=== PATIENT | male | born 1960 | race Caucasian/White ===

== ENCOUNTER 2016-08-18 10:59 | Observation (INO) | payer OTHER ==
[2016-08-18] MEDS ORDERED: ASPIRIN EC 325 MG TAB PO ONE (11:12)
[2016-08-18] MEDS ORDERED: FAMOTIDINE 20 MG TAB PO ONE (11:12)
[2016-08-18] MEDS ORDERED: NS 1,000 ML IV ONE (11:12)
[2016-08-18] MEDS ORDERED: DIAZEPAM 5 MG TAB PO ONE (11:12)
[2016-08-18] MEDS ORDERED: diphenhydrAMINE 25 MG CAP PO ONE ×2 (11:12→11:34)
[2016-08-18] MEDS ORDERED: FAMOTIDINE 20 MG TAB ONE (11:34)
[2016-08-18] MEDS ORDERED: DIAZEPAM 5 MG TAB ONE (11:34)
[2016-08-18 11:37] LABS: % IMMATURE GRANULYOCYTES 0.2 % (0.0-1.1); ABSOLUTE IMMATURE GRANULOCYTES 0.02 10^3/uL (0.00-0.10); ADD DIFF? NO; ADD MORPH? NO; ADD SCAN? NO; ATYPICAL LYMPHOCYTE FLAG 0 (0-99); FRAGMENT RBC FLAG 0 (0-99); HEMOGLOBIN 16.9 g/dL (13.7-17.5); LEFT SHIFT FLG 0 (0-99); LIPEMIA HEMOLYSIS FLAG 90 (0-99); MEAN CELL HEMOGLOBIN 31.4 pg (27.9-34.1); MEAN CELL HEMOGLOBIN CONCENTR. 35.2 g/dL (32.4-36.7); MEAN CELL VOLUME 89.1 fL (81.5-99.8); MEAN PLATELET VOLUME 8.5 fL (8.7-11.7); PLATELET CLUMPS FLAG 0 (0-99); PLATELET COUNT 219 10^3/uL (150-400); RED BLOOD CELL COUNT 5.39 10^6/uL (4.40-6.38)
[2016-08-18] MEDS ORDERED: fentaNYL 100 MCG/2 ML INJ ONE ×2 (11:44→12:46)
[2016-08-18] MEDS ORDERED: LIDOCAINE 1% 30 ML SDV ONE (11:44)
[2016-08-18] MEDS ORDERED: MIDAZOLAM 2 MG/2 ML VIAL ONE ×3 (11:45→13:52)
[2016-08-18] MEDS ORDERED: VERAPAMIL 5 MG/2 ML VIAL ONE ×2 (11:45→13:37)
[2016-08-18] MEDS ORDERED: HEPARIN 10,000 UNIT/10 ML MDV ONE (11:45)
[2016-08-18] MEDS ORDERED: IOPAMIDOL (ISOVUE-370) 150 ML BTL IV ONE ×3 (11:46→13:45)
[2016-08-18 11:47] LABS: INR 1.05 (0.83-1.16); PROTIME(PATIENT) 13.6 SEC (12.0-15.0)
[2016-08-18 11:53] LABS: ANION GAP 9 mEq/L (8-16); CALCIUM 9.2 mg/dL (8.5-10.4); CARBON DIOXIDE 29 mEq/l (22-31); CHLORIDE 104 mEq/L (97-110); CHOLESTEROL 166 mg/dL (140-220); CHOLESTEROL/HDL RATIO 3.69 RATIO (1.00-4.97); CREATININE 0.8 mg/dL (0.7-1.3); GLOMERULAR FILTRATION RATE > 60; GLUCOSE 100 mg/dL (70-100); HIGH DENSITY LIPOPROTEIN 45 mg/dL (40-65); LDL/HDL RATIO 2.33 RATIO (1.00-3.64); LOW DENSITY LIPOPROTEIN 105 mg/dL (80-100); MAGNESIUM 1.9 mg/dL (1.6-2.3); NON-HIGH DENSITY LIPOPROTEIN 121 mg/dL (90-129); POTASSIUM 4.5 mEq/L (3.5-5.2); SODIUM 142 mEq/L (134-144); TRIGLYCERIDE 81 mg/dL (40-150); VERY LOW DENSITY LIPOPROTEINS 16 mg/dL (8-25)
[2016-08-18] MEDS ORDERED: NITROGLYCERIN 1,500 MCG/15 ML VIAL MISC ONE (13:37)
--- NOTE | 2016-08-18 13:38 | SUROPNOTE ---
[facility] Operative Report - Surgery Date of Procedure: 08/18/16 Indication: This patient is a 55 year old man, with coronary artery disease by calcium score and family history of cardiac disease, presenting with 3 months of exertional chest discomfort. He first started to experience chest pain with exercise in May, and subsequently stopped exercising. Since that point, in the recent past, the most active he has been is walking up stairs and playing a game of tennis last week with his daughter. He had the same chest discomfort last week while playing that game of tennis, which improved after lessening his effort and exertion. Symptoms are consistent with [place] Cardiovascular Class III angina, now occurring with very mild exertion. Previous to yesterday, the patient had not undergone any cardiac evaluation. The patient had a heart scan yesterday, which demonstrated calcium score of approximately 6500, placing him in over the 90th percentile for his age. The heart scan results, in combination with the patient's anginal symptoms occurring at very low-threshold exertion, were very concerning for ischemic heart disease. Stress testing was felt to be unsafe and would put the patient at unnecessary risk. Decision was made to proceed urgently to left heart catheterization secondary to class III angina. Procedures performed: 1. Left heart catheterization with left ventricular and selective coronary angiography. 2. Balloon angioplasty, intravascular ultrasound imaging, and intracoronary stent placement x2 in the circumflex. Description of procedure: Description, risks, benefits and alternatives were discussed in detail. Informed consent was obtained. The patient was brought to the catheterization laboratory where a timeout was performed. The right wrist was sterilely prepped and draped. 2% lidocaine utilized for local anesthetic. A 5/6-[place]ozambican slender hemostatic sheath placed right radial artery utilizing micropuncture technique. Intraarterial verapamil and intravenous heparin was administered. Diagnostic coronary angiography performed with 6-Mozambican, Gil left-3.5 and Gil right -4 catheter. The Gil right-4 catheter was somewhat difficult to engage the right coronary artery. A 6-[place]ozamb[place] AL1 catheter was also utilized, but was not able to engage the right coronary artery. Ultimately, further diagnostic angiography of the right coronary artery was performed with a 6-[place]ozambican Abel right catheter. All catheters were passed over a 0.035 guidewire. Pigtail catheter was then utilized for left heart catheterization and left ventricular angiography. The obvious culprit lesions are several sites of severe stenosis in the circumflex and involving the obtuse marginal branch trifurcation. A 6-[place]oz[place] EBU 3.75 guide catheter was utilized to engage the left coronary system. A long [place] J wire with a 2.0mm x 6mm Sprinter over the wire balloon was placed in the circumflex as a unit. Prowater J wire was exchanged for a long Wiggle wire. The Sprinter balloon was positioned in the proximal circumflex and was utilized for multiple inflations for pre-dilation for each of the severe lesions, starting with the most distal lesion in the proximal-vessel; utilized for a total of 5 inflations to a maximum of 16 atmospheres. Intracoronary nitroglycerin and verapamil was administered. Next, ultrasound catheter was placed and intravascular ultrasound imaging was performed in the circumflex to assess lesion length and reference vessel diameter. A 4.0mm x 38mm Synergy drug- eluding stent was chosen and carefully positioned in the mid-circumflex to cover the area of severe lesion. This was deployed to 13 atmospheres for 25 seconds. Stent balloon was inflated to 16 atmospheres for 10 seconds. Then, the stent balloon was utilized for pre-dilation of the proximal circumflex, inflated to 16 atmospheres for 10 seconds. Next, a 4.0mm x 20mm Synergy drug- eluding stent was chosen and carefully positioned in the proximal circumflex, extending to the ostium, to cover the remaining severe disease. This was deployed to 18 atmospheres for 15 seconds. Stent balloon was inflated to 18 atmospheres for 10 seconds. Further intracoronary nitroglycerin and verapamil was administered. Repeat intravascular ultrasound imaging was performed in the circumflex, demonstrating good stent deployment and that the sites of severe disease were completely covered with the stents. Final orthogonal angiography was performed. Arterial sheath was removed and TR band was placed. Findings: 1. Hemodynamics: Aortic pressure 98/81, mean of 87, left ventricular pressure 99/8/14 end-diastolic. There was no significant pull back gradient across the aortic valve. 2. Left ventricle: The left ventricle appears normal in size. Left ventricle is normal shape. Segmental wall motion is normal with an ejection fraction of 50 %. There are no filling defects or significant mitral regurgitation. The aortic root and ascending aorta appears normal, there is no dissection or aneurysm formation. 3. Coronary angiography: Left main: The left main is an extremely long and large trifurcating vessel mild plaque 4. Left anterior descending: This is a large vessel continuing around the apex. There is a large bifurcating diagonal branch. There is a tubular long 50% proximal LAD stenosis and otherwise diffuse disease of 30%. 5. Circumflex: The circumflex has a proximal 80%, followed by a 90% stenosis, followed by a 95% stenosis, which affects a trifurcating obtuse marginal branch. 6. Ramus intermedius: Small-moderate size vessel with mild disease. 7. Right coronary: Large dominant vessel. large PDA, large bifurcating posterolateral. There is diffuse heavy calcification throughout the vessel. The right coronary contains a 60% proximal stenosis and a 60% distal stenosis. The PDA contains a very distal 100% stenosis. There are very faint right to left collaterals to the circumflex. There is diffuse 50% disease in other areas. 8. Percutaneous intervention: Guided by intravascular ultrasound imaging and angiography, a total of two drug-eluding stents were placed in the proximal and mid circumflex, with excellent result confirmed by repeat intravascular ultrasound imaging. Overall Impression: 1. Severe proximal circumflex disease, treated with a total of two drug-eluding stents in the proximal and mid circumflex, with excellent result confirmed by repeat intravascular ultrasound imaging. 2. Otherwise, there is moderate diffuse coronary artery disease, with some areas of heavy calcified disease. 3. Low-normal left ventricular systolic function with ejection fraction of 50% . Plan: 1. Dual anti-platelet therapy. Will start with Effient and aspirin. 2. Aggressive risk modification and high dose statin therapy with 40mg Crestor. 3. Close clinical follow up. Portions of this report were documented by a regional medical director. I have reviewed this report and agree with the documentation. Report scribed for Dr. Antonio Richards. Report scribed by Sonia Ruiz.
[2016-08-18] MEDS ORDERED: PRASUGREL HCL 10 MG TAB ONE (14:07)
[2016-08-18] MEDS ORDERED: HYDROCODONE/APAP 5/325 TAB PO PRN (14:33)
[2016-08-18] MEDS ORDERED: ONDANSETRON 4 MG/2 ML VIAL IVP PRN (14:33)
[2016-08-18] MEDS ORDERED: PRASUGREL HCL 10 MG TAB PO ONE (14:33)
[2016-08-18] MEDS ORDERED: ATROPINE SULFATE 1 MG/10 ML SYR IVP PRN (14:33)
[2016-08-18] MEDS ORDERED: TEMAZEPAM 15 MG CAP PO PRN (14:33)
[2016-08-18] MEDS ORDERED: LORazepam 2 MG/ML INJ IVP PRN (14:33)
[2016-08-18] MEDS ORDERED: OXYCODONE/APAP 5/325 TAB PO PRN (14:33)
[2016-08-18] MEDS ORDERED: NITROGLYCERIN 0.4 MG BTL SL PRN (14:33)
[2016-08-18] MEDS ORDERED: D5W 1/2 NS 1,000 ML IV SCH (14:45)
--- NOTE | 2016-08-18 14:45 | CPEKG ---
Heart Rate: 52 RR Interval: 1154 P-R Interval: 188 QRSD Interval: 92 QT Interval: 460 QTC Interval: 428 P [place]: 36 QRS [place]: 12 T Wave [place]: -13 EKG Severity - BORDERLINE ECG - EKG Impression: SINUS RHYTHM EKG Impression: BORDERLINE T ABNORMALITIES, INFERIOR LEADS Electronically Signed By: Vera Culver 18-Aug-2016 16:23:28
[2016-08-18] MEDS ORDERED: HYDROCODONE/APAP 5/325 TAB ONE (15:04)
[2016-08-18] MEDS ORDERED: amLODIPine BESYLATE 5 MG TAB PO ONE (15:30)
[2016-08-18] MEDS: METOPROLOL TARTRATE 5 MG/5 ML INJ IVP SCH ×2 (18:12→18:13)
[2016-08-18] MEDS: METOPROLOL TARTRATE 50 MG TAB PO SCH ×2 (18:55→20:44)
[2016-08-18] MEDS: ROSUVASTATIN CALCIUM 40 MG TAB PO SCH (19:54)
[2016-08-19 05:08] LABS: % IMMATURE GRANULYOCYTES 0.4 % (0.0-1.1); ABSOLUTE IMMATURE GRANULOCYTES 0.03 10^3/uL (0.00-0.10); ADD DIFF? NO; ADD MORPH? NO; ADD SCAN? NO; ATYPICAL LYMPHOCYTE FLAG 0 (0-99); FRAGMENT RBC FLAG 0 (0-99); HEMATOCRIT 44.7 % (40.0-51.0); HEMOGLOBIN 15.7 g/dL (13.7-17.5); LEFT SHIFT FLG 0 (0-99); LIPEMIA HEMOLYSIS FLAG 90 (0-99); MEAN CELL HEMOGLOBIN 31.4 pg (27.9-34.1); MEAN CELL HEMOGLOBIN CONCENTR. 35.1 g/dL (32.4-36.7); MEAN CELL VOLUME 89.4 fL (81.5-99.8); PLATELET CLUMPS FLAG 0 (0-99); PLATELET COUNT 246 10^3/uL (150-400); RED CELL DISTRIBUTION WIDTH 13.1 % (11.5-15.2)
[2016-08-19 05:21] LABS: ALBUMIN 3.9 g/dL (3.5-5.0); ANION GAP 12 mEq/L (8-16); ASPARTATE AMINOTRANSFERASE 40 IU/L (17-59); BILIRUBIN,TOTAL 1.1 mg/dL (0.1-1.4); CARBON DIOXIDE 22 mEq/l (22-31); CHLORIDE 106 mEq/L (97-110); CREATININE 0.8 mg/dL (0.7-1.3); GLOMERULAR FILTRATION RATE > 60; GLUCOSE 113 mg/dL (70-100); LACTATE DEHYDROGENASE 416 IU/L (313-618); POTASSIUM 4.3 mEq/L (3.5-5.2); SODIUM 140 mEq/L (134-144)
[2016-08-19 05:39] LABS: CK-MB INTERPRETATION POSITIVE (NEGATIVE)
[2016-08-19 05:40] LABS: CREATINE KINASE-MB FRACTION 8.91 ng/mL (0-3.19)
[2016-08-19] MEDS: ROSUVASTATIN CALCIUM 40 MG TAB PO SCH (08:31)
[2016-08-19] MEDS: METOPROLOL TARTRATE 50 MG TAB PO SCH (08:36)
[2016-08-19] MEDS ORDERED: PRASUGREL HCL 10 MG TAB PO SCH (09:00)
[2016-08-19] MEDS ORDERED: LISINOPRIL 10 MG TAB PO SCH (09:00)
[2016-08-19] MEDS ORDERED: ASPIRIN EC 325 MG TAB PO SCH (09:00)
--- NOTE | 2016-08-19 09:23 | CPEKG ---
Heart Rate: 69 RR Interval: 870 P-R Interval: 156 QRSD Interval: 92 QT Interval: 396 QTC Interval: 425 P [place]: 37 QRS [place]: 57 T Wave [place]: 25 EKG Severity - OTHERWISE NORMAL ECG - EKG Impression: SINUS RHYTHM EKG Impression: VENTRICULAR PREMATURE COMPLEX Electronically Signed By: Vera Culver 19-Aug-2016 09:48:20
[2016-08-19 11:54] VITALS: BP 128/86; PULSE 58; RESP 15; TEMP 98.1; O2SAT 95
--- NOTE | 2016-08-19 17:13 | GDS ---
[f rep st] DISCHARGE SUMMARY DIAGNOSES: 1. Accelerating angina. 2. Coronary artery disease. 3. Hyperlipidemia. 4. Family history of coronary artery disease. 5. Hypertension. PROCEDURES PERFORMED: 1. Left heart catheterization with left ventricular and selective coronary angiography via right rad ial approach. 2. Balloon angioplasty, intravascular ultrasound imaging and intracoronary stent placement x2 in the circumflex coronary artery. HOSPITAL COURSE: This 55-year-old man, without previously known heart disease, has had a number of m onths of progressive angina, now [place] cardiovascular Class 3. On the day prior to admission, he self-referred to Dr. Hubbard for EBCT heart scan. This was strikingly positive with a score over 60 00. Due to the patient's symptoms, we decided that stress testing would not be appropriate, but card iac catheterization was planned. The patient was found to be hypertensive and started on beta-blocke r and aspirin prior to procedure. On the day of admission, catheterization was performed via the rig ht radial approach without complication. Left ventriculogram showed low-normal ejection fraction. L eft anterior descending and right coronary artery had diffuse, calcified, noncritical disease with mo derate to severe disease in the mid to distal posterior descending. The obvious culprit lesions were in the circumflex with an 80% proximal/ostial lesion, followed by an AV groove 90% stenosis and 95% stenosis affecting the origin of the principal obtuse marginal branch. Percutaneous intervention was performed with 2 overlapping 4.0 mm Synergy drug-eluting stents. There was a 38 mm distally and a p roximally overlapping 20 mm stent right up to the ostium of the circumflex with excellent results con firmed by ultrasound imaging. Patient did have a very small branch of obtuse marginal placed in "jose nt fpc." There was slow flow and a very mild amount of chest pain afterward. Patient did have a ve ry minor rise in CPK and troponin due to this branch. Initial LDL cholesterol was 105 with an HDL of 45. Patient was feeling well with a well-healed radial access site and no problems at the time of d ischarge. DISCHARGE MEDICATIONS: Aspirin 325 mg daily, prasugrel 10 mg daily, metoprolol extended release 50 m g daily, lisinopril 10 mg daily, and rosuvastatin 40 mg daily. FOLLOWUP PLAN: Patient will be seen in my office in approximately 1 week. He should have baseline e chocardiogram due to low-normal ejection fraction. I would also like to obtain a baseline nuclear im aging stress test due to his diffuse disease in 2-3 months. Following that, he should have an LDL/ch olesterol of less than 70 and intermittent nuclear imaging stress test as needed. Dual antiplatelet therapy for at least 1 year. /[id number]/MODL
== END 2016-08-19 17:54 | disposition home or self-care (01) ==
LOC: FCATH 10:59 → F2W 14:33
PROVIDERS: ADMIT Internal Medicine Interventional Cardiology; ATTEND Internal Medicine Interventional Cardiology
PROC: 027035Z Dilation of Coronary Artery, One Artery with Two Drug-eluting Intraluminal Devices, Percutaneous Approach (ICD-10-PCS; principal; 2016-08-18)
PROC: 4A023N7 Measurement of Cardiac Sampling and Pressure, Left Heart, Percutaneous Approach (ICD-10-PCS; 2016-08-18)
PROC: B2151ZZ Fluoroscopy of Left Heart using Low Osmolar Contrast (ICD-10-PCS; 2016-08-18)
PROC: B2111ZZ Fluoroscopy of Multiple Coronary Arteries using Low Osmolar Contrast (ICD-10-PCS; 2016-08-18)
PROC: B245ZZ3 Ultrasonography of Left Heart, Intravascular (ICD-10-PCS; 2016-08-18)
DX: I25.119 Atherosclerotic heart disease of native coronary artery with unspecified angina pectoris (principal); E78.5 Hyperlipidemia, unspecified; Z82.49 Family history of ischemic heart disease and other diseases of the circulatory system; I10 Essential (primary) hypertension; R93.1 Abnormal findings on diagnostic imaging of heart and coronary circulation
CPT/HCPCS: C1725; C1753; C1769; C1874; C1887; C9600; G0378; J1644; J2250; J3010; Q9967